=== PATIENT | male | born 1970 | race Caucasian/White ===

== ENCOUNTER 2017-06-11 06:00 | Day surgery (SDC) | payer BC | END 2017-06-11 10:45 | disposition home or self-care (01) | LOC: FECT 06:00 | PROC: GZB4ZZZ Other Electroconvulsive Therapy (ICD-10-PCS; principal; 2017-06-11) | DX: F33.2 Major depressive disorder, recurrent severe without psychotic features (principal) | CPT/HCPCS: 36415; 80053; 85025; 90870; 93005; 94760 ==

== ENCOUNTER 2017-06-14 05:51 | Day surgery (SDC) | payer BC | END 2017-06-14 08:56 | disposition home or self-care (01) | LOC: FECT 05:51 | PROC: GZB4ZZZ Other Electroconvulsive Therapy (ICD-10-PCS; principal; 2017-06-14) | DX: F33.2 Major depressive disorder, recurrent severe without psychotic features (principal) | CPT/HCPCS: 90870; 94760 ==

== ENCOUNTER → 2017-06-16 | Day surgery (SDC) | payer BC ==
[2017-06-11 16:05] VITALS: BMI 26.4
[~2017-06-16] MED LIST: KETAMINE HCL 500 MG/10 ML VIAL ONE
[2017-06-16 08:19] VITALS: TEMP 97.6
[2017-06-16 08:59] VITALS: BP 124/80; PULSE 66
== END | disposition home or self-care (01) ==
LOC: FECT 05:44
PROVIDERS: ATTEND Psychiatry & Neurology Psychiatry
PROC: GZB4ZZZ Other Electroconvulsive Therapy (ICD-10-PCS; principal; 2017-06-16 08:15)
DX: F33.2 Major depressive disorder, recurrent severe without psychotic features (principal)
CPT/HCPCS: 90870; 94760

== ENCOUNTER 2017-06-18 05:40 | Day surgery (SDC) | payer BC | END 2017-06-18 08:45 | disposition home or self-care (01) | LOC: FECT 05:40 | PROC: GZB4ZZZ Other Electroconvulsive Therapy (ICD-10-PCS; principal; 2017-06-18) | DX: F33.2 Major depressive disorder, recurrent severe without psychotic features (principal) | CPT/HCPCS: 90870; 94760 ==

== ENCOUNTER 2017-06-21 05:35 | Day surgery (SDC) | payer BC ==
[2017-06-14 12:08] VITALS: BMI 26.4
[2017-06-21 06:01] VITALS: TEMP 97.8
[2017-06-21 08:41] VITALS: BP 112/70; PULSE 61
== END 2017-06-21 08:35 | disposition home or self-care (01) ==
LOC: FECT 05:35
PROVIDERS: ATTEND Psychiatry & Neurology Psychiatry
PROC: GZB4ZZZ Other Electroconvulsive Therapy (ICD-10-PCS; principal; 2017-06-21 08:00)
DX: F33.2 Major depressive disorder, recurrent severe without psychotic features (principal)
CPT/HCPCS: 90870; 94760

== ENCOUNTER 2017-06-23 05:40 | Day surgery (SDC) | payer BC ==
[2017-06-23 06:15] VITALS: BMI 26.2
[2017-06-23 08:27] VITALS: BP 116/79; PULSE 72; TEMP 98.2
== END 2017-06-23 08:56 | disposition home or self-care (01) ==
LOC: FECT 05:40
PROVIDERS: ATTEND Psychiatry & Neurology Psychiatry
PROC: GZB4ZZZ Other Electroconvulsive Therapy (ICD-10-PCS; principal; 2017-06-23 08:00)
DX: F33.2 Major depressive disorder, recurrent severe without psychotic features (principal)
CPT/HCPCS: 90870; 94760

== ENCOUNTER 2017-06-25 05:35 | Day surgery (SDC) | payer BC ==
[2017-06-25 06:09] VITALS: BMI 26.4
[2017-06-25 07:52] VITALS: TEMP 97.5
[2017-06-25 08:28] VITALS: BP 108/68; PULSE 60
== END 2017-06-25 08:20 | disposition home or self-care (01) ==
LOC: FECT 05:35
PROVIDERS: ATTEND Psychiatry & Neurology Psychiatry
PROC: GZB4ZZZ Other Electroconvulsive Therapy (ICD-10-PCS; principal; 2017-06-25 07:15)
DX: F33.2 Major depressive disorder, recurrent severe without psychotic features (principal)
CPT/HCPCS: 90870; 94760

== ENCOUNTER 2017-06-28 05:41 | Day surgery (SDC) | payer BC ==
[2017-06-21 13:17] VITALS: BMI 26.4
[2017-06-28 08:45] VITALS: TEMP 98
[2017-06-28 08:57] VITALS: BP 116/79; PULSE 64
== END 2017-06-28 09:00 | disposition home or self-care (01) ==
LOC: FECT 05:41
PROVIDERS: ATTEND Psychiatry & Neurology Psychiatry
PROC: GZB4ZZZ Other Electroconvulsive Therapy (ICD-10-PCS; principal; 2017-06-28 07:15)
DX: F33.2 Major depressive disorder, recurrent severe without psychotic features (principal)
CPT/HCPCS: 90870; 94760

== ENCOUNTER 2017-06-30 05:41 | Day surgery (SDC) | payer BC ==
[2017-06-23 10:13] VITALS: BMI 26.4
[2017-06-30 08:36] VITALS: TEMP 97.6
[2017-06-30 08:56] VITALS: BP 119/82; PULSE 66
== END 2017-06-30 08:58 | disposition home or self-care (01) ==
LOC: FECT 05:41
PROVIDERS: ATTEND Psychiatry & Neurology Psychiatry
PROC: GZB4ZZZ Other Electroconvulsive Therapy (ICD-10-PCS; principal; 2017-06-30 07:15)
DX: F33.2 Major depressive disorder, recurrent severe without psychotic features (principal)
CPT/HCPCS: 90870; 94760

== ENCOUNTER 2017-07-02 06:03 | Day surgery (SDC) | payer BC ==
[2017-06-23 10:16] VITALS: BMI 26.4
[2017-07-02 08:50] VITALS: TEMP 97.9
[2017-07-02 09:05] VITALS: BP 117/78; PULSE 71
== END 2017-07-02 09:17 | disposition home or self-care (01) ==
LOC: FECT 06:03
PROVIDERS: ATTEND Psychiatry & Neurology Psychiatry
PROC: GZB4ZZZ Other Electroconvulsive Therapy (ICD-10-PCS; principal; 2017-07-02 07:00)
DX: F33.2 Major depressive disorder, recurrent severe without psychotic features (principal)
CPT/HCPCS: 90870; 94760

== ENCOUNTER 2017-07-05 05:35 | Day surgery (SDC) | payer BC ==
[2017-06-23 10:28] VITALS: BMI 26.4
[2017-07-05] MEDS ORDERED: ONDANSETRON 4 MG/2 ML VIAL IVPUSH PRN (07:39)
[2017-07-05] MEDS ORDERED: ACETAMINOPHEN 325 MG TABLET (FP) PO PRN (07:39)
[2017-07-05 08:27] VITALS: PULSE 66; TEMP 97.6
[2017-07-05 08:54] VITALS: BP 116/76
== END 2017-07-05 08:56 | disposition home or self-care (01) ==
LOC: FECT 05:35
PROVIDERS: ATTEND Psychiatry & Neurology Psychiatry
PROC: GZB4ZZZ Other Electroconvulsive Therapy (ICD-10-PCS; principal; 2017-07-05 07:00)
DX: F33.2 Major depressive disorder, recurrent severe without psychotic features (principal)
CPT/HCPCS: 90870; 94760

== ENCOUNTER 2017-07-07 05:33 | Day surgery (SDC) | payer BC ==
[2017-06-29 12:05] VITALS: BMI 26.4
[2017-07-07] MEDS ORDERED: KETAMINE HCL 500 MG/10 ML VIAL ONE (07:51)
[2017-07-07] MEDS ORDERED: ACETAMINOPHEN 325 MG TABLET (FP) PO PRN (08:22)
[2017-07-07] MEDS ORDERED: ONDANSETRON 4 MG/2 ML VIAL IVPUSH PRN (08:22)
[2017-07-07 09:06] VITALS: TEMP 97.9
[2017-07-07 09:32] VITALS: BP 135/84; PULSE 69
== END 2017-07-07 09:35 | disposition home or self-care (01) ==
LOC: FECT 05:33
PROVIDERS: ATTEND Psychiatry & Neurology Psychiatry
PROC: GZB4ZZZ Other Electroconvulsive Therapy (ICD-10-PCS; principal; 2017-07-07 07:00)
DX: F33.2 Major depressive disorder, recurrent severe without psychotic features (principal)
CPT/HCPCS: 90870; 94760

== ENCOUNTER 2017-07-09 05:51 | Day surgery (SDC) | payer BC ==
[2017-07-09 07:05] VITALS: BMI 26.4
[2017-07-09 09:11] VITALS: PULSE 69; TEMP 97.6
[2017-07-09 09:12] VITALS: BP 110/70
== END 2017-07-09 09:21 | disposition home or self-care (01) ==
LOC: FECT 05:51
PROVIDERS: ATTEND Psychiatry & Neurology Psychiatry
PROC: GZB4ZZZ Other Electroconvulsive Therapy (ICD-10-PCS; principal; 2017-07-09 08:45)
DX: F33.2 Major depressive disorder, recurrent severe without psychotic features (principal)
CPT/HCPCS: 90870; 94760

== ENCOUNTER 2017-07-12 05:49 | Day surgery (SDC) | payer BC ==
[2017-07-07 17:09] VITALS: BMI 26.4
[2017-07-12 07:01] VITALS: TEMP 97.8
--- NOTE | 2017-07-12 07:14 | HP ---
Admitting History and Physical - Admission History of Present Illness: Patient is a 46 y/o male with a past medical history of depression. Patient presents for ect, his last ect was 07/09/17. Patient reports no significant improvement in depressive symptoms since starting ect. He denies any suicidal or homicidal ideation visual or auditory hallucinations. Patient does report compliance with prescribed medications, he denies any changes to medications. Patient denies any recent hospitalizations or illnesses. History Source: Patient Limitations to Obtaining History: No Limitations - Smoking History Smoking history: Never smoked Have you smoked in the past 12 months: No - Alcohol/Substance Use Hx Alcohol Use: No History of Substance Use: reports: None - Social History Usual Living Arrangement: Yes: With Spouse ADL: Independent History of Recent Travel: No Home Medications - Allergies Allergies/Adverse Reactions: Allergies Allergy/AdvReac Type Severity Reaction Status Date / Time No Known Allergies Allergy Verified 07/08/17 17:16 - Home Medications Home Medications: Ambulatory Orders Alpha Lipoic Acid 600 mg PO HS 06/10/17 Cholecalciferol (Vitamin D3) [Vitamin D3] 2,000 unit PO HS 06/10/17 Citalopram Hydrobromide [Celexa -] 40 mg PO HS 06/10/17 Cyanocobalamin [Vitamin B12 -] 1,000 mcg SL HS 06/10/17 Magnesium Glycinate [Mag Glycinate] 400 mg PO HS 06/10/17 Olanzapine 10 mg PO HS 06/10/17 Potassium 99 mg PO HS 06/10/17 Ubidecarenone [Coq10] 100 mg PO HS 06/10/17 clonazePAM [Klonopin -] 0.5 mg PO TID PRN 06/10/17 Folic Acid 1 mg PO HS 07/02/17 Family Disease History - Family Disease History Family Disease History: Diabetes: Mother, Other: Father (stomach CA ) Review of Systems - Review of Systems Constitutional: reports: No Symptoms Eyes: reports: No Symptoms HENT: reports: No Symptoms Neck: reports: No Symptoms Cardiovascular: reports: No Symptoms Respiratory: reports: No Symptoms Gastrointestinal: reports: No Symptoms Genitourinary: reports: No Symptoms Musculoskeletal: reports: No Symptoms Integumentary: reports: No Symptoms Neurological: reports: No Symptoms Endocrine: reports: No Symptoms Hematology/Lymphatic: reports: No Symptoms Psychiatric: reports: No Symptoms Physical Examination Vital Signs: Vital Signs Temperature 97.8 F 07/12/17 06:57 Pulse Rate 66 07/12/17 06:57 Respiratory Rate 18 07/12/17 06:57 Blood Pressure 109/74 07/12/17 06:57 O2 Sat by Pulse Oximetry (%) 96 07/12/17 06:57 Constitutional: Yes: Well Nourished, No Distress, Calm Eyes: Yes: WNL, Conjunctiva Clear, EOM Intact HENT: Yes: WNL, Atraumatic, Normocephalic Neck: Yes: WNL, Supple, Trachea Midline Cardiovascular: Yes: WNL, Regular Rate and Rhythm, S1, S2 Respiratory: Yes: WNL, Regular, CTA Bilaterally Gastrointestinal: Yes: WNL, Normal Bowel Sounds, Soft ...Rectal Exam: Yes: Deferred Renal/: Yes: WNL Breast(s): Yes: WNL Musculoskeletal: Yes: WNL Extremities: Yes: WNL Edema: No Peripheral Pulses WNL: Yes Peripheral Pulses: Left Radial: 4+, Right Radial: 4+, Left Doralis Pedis: 3+, Right Dorsalis Pedis: 3+, Left Femoral: 3+, Right Femoral: 3+ Integumentary: Yes: WNL Neurological: Yes: WNL, Alert, Oriented ...Motor Strength: WNL Psychiatric: Yes: WNL, Alert, Oriented Labs: reviewed 06/11/17 Imaging - Results EKG: Image Reviewed, Other (nsr, incomplete right bundle branch block, right axis deviation) Assessment/Plan patient is a 46 y/o male, patient presents for ect, labs and ekg received patient is medically optimized for procedure, informed consent, risks/benefits to be obtained by Dr Landa.
[2017-07-12 09:00] VITALS: BP 116/76; PULSE 72
== END 2017-07-12 09:02 | disposition home or self-care (01) ==
LOC: FECT 05:49
PROVIDERS: ATTEND Psychiatry & Neurology Psychiatry
PROC: GZB4ZZZ Other Electroconvulsive Therapy (ICD-10-PCS; principal; 2017-07-12 07:45)
DX: F33.2 Major depressive disorder, recurrent severe without psychotic features (principal)
CPT/HCPCS: 90870; 94760

== ENCOUNTER 2017-07-14 05:40 | Day surgery (SDC) | payer BC ==
[2017-07-08 17:17] VITALS: BMI 26.4
[2017-07-14 07:59] VITALS: TEMP 97.9
[2017-07-14 08:23] VITALS: BP 112/69; PULSE 79
== END 2017-07-14 08:31 | disposition home or self-care (01) ==
LOC: FECT 05:40
PROVIDERS: ATTEND Psychiatry & Neurology Psychiatry
PROC: GZB4ZZZ Other Electroconvulsive Therapy (ICD-10-PCS; principal; 2017-07-14 08:15)
DX: F33.2 Major depressive disorder, recurrent severe without psychotic features (principal)
CPT/HCPCS: 90870; 94760

== ENCOUNTER 2017-07-16 05:51 | Day surgery (SDC) | payer BC ==
[2017-07-09 10:47] VITALS: BMI 26.4
[2017-07-16 06:48] VITALS: TEMP 97.4
[2017-07-16 09:09] VITALS: BP 120/84; PULSE 77
== END 2017-07-16 09:10 | disposition home or self-care (01) ==
LOC: FECT 05:51
PROVIDERS: ATTEND Psychiatry & Neurology Psychiatry
PROC: GZB4ZZZ Other Electroconvulsive Therapy (ICD-10-PCS; principal; 2017-07-16 08:15)
DX: F33.2 Major depressive disorder, recurrent severe without psychotic features (principal)
CPT/HCPCS: 90870; 94760

== ENCOUNTER 2017-07-21 05:42 | Day surgery (SDC) | payer BC ==
[2017-07-21 06:24] VITALS: BMI 26.2
[2017-07-21 08:04] VITALS: TEMP 97.6
[2017-07-21 09:34] VITALS: BP 128/82; PULSE 64
== END 2017-07-21 08:45 | disposition home or self-care (01) ==
LOC: FECT 05:42
PROVIDERS: ATTEND Psychiatry & Neurology Psychiatry
PROC: GZB4ZZZ Other Electroconvulsive Therapy (ICD-10-PCS; principal; 2017-07-21 07:45)
DX: F33.2 Major depressive disorder, recurrent severe without psychotic features (principal)
CPT/HCPCS: 90870; 94760

== ENCOUNTER 2017-07-23 05:40 | Day surgery (SDC) | payer BC ==
[2017-07-23 06:16] VITALS: BMI 26.4
[2017-07-23] MEDS ORDERED: ONDANSETRON 4 MG/2 ML VIAL IVPUSH PRN (07:59)
[2017-07-23] MEDS ORDERED: oxyCODONE HCL 5 MG TABLET PO PRN (07:59)
[2017-07-23 08:23] VITALS: TEMP 97.6
[2017-07-23 08:47] VITALS: BP 126/87; PULSE 67
== END 2017-07-23 08:50 | disposition home or self-care (01) ==
LOC: FECT 05:40
PROVIDERS: ATTEND Psychiatry & Neurology Psychiatry
PROC: GZB4ZZZ Other Electroconvulsive Therapy (ICD-10-PCS; principal; 2017-07-23 08:00)
DX: F33.2 Major depressive disorder, recurrent severe without psychotic features (principal)
CPT/HCPCS: 90870; 94760

== ENCOUNTER 2017-07-26 05:39 | Day surgery (SDC) | payer BC ==
[2017-07-21 17:06] VITALS: BMI 26.4
[2017-07-26] MEDS ORDERED: KETAMINE HCL 500 MG/10 ML VIAL ONE (07:01)
[2017-07-26 07:57] VITALS: TEMP 98.2
[2017-07-26 09:28] VITALS: BP 122/86; PULSE 67
== END 2017-07-26 09:00 | disposition home or self-care (01) ==
LOC: FECT 05:39
PROVIDERS: ATTEND Psychiatry & Neurology Psychiatry
PROC: GZB4ZZZ Other Electroconvulsive Therapy (ICD-10-PCS; principal; 2017-07-26 07:45)
DX: F33.2 Major depressive disorder, recurrent severe without psychotic features (principal)
CPT/HCPCS: 90870; 94760

== ENCOUNTER 2017-07-28 05:42 | Day surgery (SDC) | payer BC ==
[2017-07-28 06:45] VITALS: TEMP 97.4; BMI 26.4
[2017-07-28 09:14] VITALS: PULSE 68
[2017-07-28 09:43] VITALS: BP 116/72
== END 2017-07-28 09:35 | disposition home or self-care (01) ==
LOC: FECT 05:42
PROVIDERS: ATTEND Psychiatry & Neurology Psychiatry
PROC: GZB4ZZZ Other Electroconvulsive Therapy (ICD-10-PCS; principal; 2017-07-28 07:45)
DX: F33.2 Major depressive disorder, recurrent severe without psychotic features (principal)
CPT/HCPCS: 90870; 94760

== ENCOUNTER 2017-07-30 05:36 | Day surgery (SDC) | payer BC ==
[2017-07-30 06:34] VITALS: BMI 26.4
[2017-07-30 08:18] VITALS: TEMP 98.4
[2017-07-30 08:47] VITALS: BP 125/80; PULSE 69
== END 2017-07-30 08:40 | disposition home or self-care (01) ==
LOC: FECT 05:36
PROVIDERS: ATTEND Psychiatry & Neurology Psychiatry
PROC: GZB4ZZZ Other Electroconvulsive Therapy (ICD-10-PCS; principal; 2017-07-30 07:15)
DX: F33.2 Major depressive disorder, recurrent severe without psychotic features (principal)
CPT/HCPCS: 90870; 94760

== ENCOUNTER 2017-08-13 05:45 | Day surgery (SDC) | payer BC ==
[2017-08-02 17:17] VITALS: BMI 26.4
[2017-08-13] MEDS ORDERED: KETAMINE HCL 500 MG/10 ML VIAL ONE (07:12)
--- NOTE | 2017-08-13 08:57 | HP ---
Admitting History and Physical - Admission History of Present Illness: Patient is a 47 y/o male with a past medical history of depression. Patient presents for ECT, his last ect was August 02 2017. Patient reports feeling well. He denies any recent illnesses or hospitalization. Patient does report ongoing feelings of depression he denies any suicidal or homicidal ideation patient denies any visual or auditory hallucination. Patient reports his Celexa is being weaned down and he was started on Prestiq. Patient does report compliance with prescribed medications. History Source: Patient Limitations to Obtaining History: No Limitations - Smoking History Smoking history: Never smoked Have you smoked in the past 12 months: No - Alcohol/Substance Use Hx Alcohol Use: No History of Substance Use: reports: None - Social History Usual Living Arrangement: Yes: With Spouse ADL: Independent History of Recent Travel: No Home Medications - Allergies Allergies/Adverse Reactions: Allergies Allergy/AdvReac Type Severity Reaction Status Date / Time No Known Allergies Allergy Verified 08/02/17 17:03 - Home Medications Home Medications: Ambulatory Orders Alpha Lipoic Acid 600 mg PO HS 06/10/17 Cholecalciferol (Vitamin D3) [Vitamin D3] 2,000 unit PO HS 06/10/17 Citalopram Hydrobromide [Celexa -] 20 mg PO DAILY 06/10/17 Cyanocobalamin [Vitamin B12 -] 1,000 mcg SL HS 06/10/17 Magnesium Glycinate [Mag Glycinate] 400 mg PO HS 06/10/17 Olanzapine 5 mg PO DAILY 06/10/17 Potassium 99 mg PO HS 06/10/17 Ubidecarenone [Coq10] 100 mg PO HS 06/10/17 clonazePAM [Klonopin -] 0.5 mg PO TID PRN 06/10/17 Folic Acid 1 mg PO HS 07/02/17 Mirtazapine 30 mg PO HS 07/16/17 [place]-3 Fatty Acids/Fish Oil [Fish Oil 1,000 mg Capsule] 1 each PO HS 07/16/17 Desvenlafaxine Succinate [Desvenlafaxine Succinate ER] 50 mg PO DAILY MDD TO START 08/13/17 08/13/17 Family Disease History - Family Disease History Family Disease History: Diabetes: Mother, Other: Father (stomach CA ) Review of Systems - Review of Systems Constitutional: reports: No Symptoms Eyes: reports: No Symptoms HENT: reports: No Symptoms Neck: reports: No Symptoms Cardiovascular: reports: No Symptoms Respiratory: reports: No Symptoms Gastrointestinal: reports: No Symptoms Genitourinary: reports: No Symptoms Musculoskeletal: reports: No Symptoms Integumentary: reports: No Symptoms Neurological: reports: No Symptoms Endocrine: reports: No Symptoms Hematology/Lymphatic: reports: No Symptoms Psychiatric: reports: Depression Physical Examination Vital Signs: Vital Signs Temperature 97.9 F 08/13/17 08:18 Pulse Rate 68 08/13/17 08:18 Respiratory Rate 11 L 08/13/17 08:18 Blood Pressure 130/84 08/13/17 08:18 O2 Sat by Pulse Oximetry (%) 98 08/13/17 08:05 Constitutional: Yes: Well Nourished, No Distress, Calm Eyes: Yes: WNL, Conjunctiva Clear, EOM Intact HENT: Yes: WNL, Atraumatic, Normocephalic Neck: Yes: WNL, Supple, Trachea Midline Cardiovascular: Yes: WNL, Regular Rate and Rhythm, S1, S2 Respiratory: Yes: WNL, Regular, CTA Bilaterally Gastrointestinal: Yes: WNL, Normal Bowel Sounds, Soft ...Rectal Exam: Yes: WNL Renal/: Yes: WNL Breast(s): Yes: WNL Musculoskeletal: Yes: WNL Extremities: Yes: WNL Edema: No Peripheral Pulses WNL: Yes Peripheral Pulses: Left Radial: 4+, Right Radial: 4+, Left Doralis Pedis: 3+, Right Dorsalis Pedis: 3+, Left Femoral: 3+, Right Femoral: 3+ Integumentary: Yes: WNL Neurological: Yes: WNL, Alert, Oriented ...Motor Strength: WNL Psychiatric: Yes: WNL, Alert, Oriented Labs: reviewed 06/09 Imaging - Results EKG: Other (normal sinus rhythm left axis deviation) Assessment/Plan Patient is a 47-year-old male that presents for ECT, labs and EKG reviewed Patient is medically optimized for procedure Informed consent risks benefits to be obtained by Dr Landa
[2017-08-13 08:58] VITALS: TEMP 97.7
[2017-08-13 09:04] VITALS: BP 122/82; PULSE 66
== END 2017-08-13 09:18 | disposition home or self-care (01) ==
LOC: FECT 05:45
PROVIDERS: ATTEND Psychiatry & Neurology Psychiatry
PROC: GZB4ZZZ Other Electroconvulsive Therapy (ICD-10-PCS; principal; 2017-08-13 07:30)
DX: F33.2 Major depressive disorder, recurrent severe without psychotic features (principal)
CPT/HCPCS: 90870; 94760

== ENCOUNTER 2017-08-16 05:40 | Day surgery (SDC) | payer BC ==
[2017-08-16 06:17] VITALS: BMI 26.4
[2017-08-16] MEDS ORDERED: KETAMINE HCL 500 MG/10 ML VIAL ONE (07:05)
[2017-08-16 08:14] VITALS: TEMP 97.5
[2017-08-16 09:03] VITALS: BP 122/82; PULSE 70
== END 2017-08-16 09:06 | disposition home or self-care (01) ==
LOC: FECT 05:40
PROVIDERS: ATTEND Psychiatry & Neurology Psychiatry
PROC: GZB4ZZZ Other Electroconvulsive Therapy (ICD-10-PCS; principal; 2017-08-16 08:00)
DX: F33.2 Major depressive disorder, recurrent severe without psychotic features (principal)
CPT/HCPCS: 90870; 94760

== ENCOUNTER 2017-08-18 05:39 | Day surgery (SDC) | payer BC ==
[2017-08-18 06:30] VITALS: TEMP 97.5; BMI 26.4
[2017-08-18 08:41] VITALS: BP 129/76; PULSE 62
== END 2017-08-18 08:46 | disposition home or self-care (01) ==
LOC: FECT 05:39
PROVIDERS: ATTEND Psychiatry & Neurology Psychiatry
PROC: GZB4ZZZ Other Electroconvulsive Therapy (ICD-10-PCS; principal; 2017-08-18 07:45)
DX: F33.2 Major depressive disorder, recurrent severe without psychotic features (principal)
CPT/HCPCS: 90870; 94760

== ENCOUNTER 2017-08-27 05:44 | Day surgery (SDC) | payer BC ==
[2017-08-27 06:16] VITALS: BMI 26.4
[2017-08-27 08:34] VITALS: PULSE 74; TEMP 97.5
[2017-08-27 08:35] VITALS: BP 125/85
[2017-08-27] MEDS ORDERED: ONDANSETRON 4 MG/2 ML VIAL IVPUSH PRN (09:29)
== END 2017-08-27 08:27 | disposition home or self-care (01) ==
LOC: FECT 05:44
PROVIDERS: ATTEND Psychiatry & Neurology Psychiatry
PROC: GZB4ZZZ Other Electroconvulsive Therapy (ICD-10-PCS; principal; 2017-08-27 08:15)
DX: F33.2 Major depressive disorder, recurrent severe without psychotic features (principal)

== ENCOUNTER 2017-09-03 05:43 | Day surgery (SDC) | payer BC ==
[2017-08-30 17:39] VITALS: BMI 26.4
[2017-09-03 08:30] VITALS: TEMP 98.2
[2017-09-08 12:19] VITALS: BP 120/78; PULSE 74
== END 2017-09-03 09:00 | disposition home or self-care (01) ==
LOC: FECT 05:43
PROVIDERS: ATTEND Psychiatry & Neurology Psychiatry
PROC: GZB4ZZZ Other Electroconvulsive Therapy (ICD-10-PCS; principal; 2017-09-03 08:15)
DX: F33.2 Major depressive disorder, recurrent severe without psychotic features (principal)

== ENCOUNTER 2017-09-13 05:53 | Day surgery (SDC) | payer BC ==
[2017-09-09 18:21] VITALS: BMI 26.4
--- NOTE | 2017-09-13 07:10 | HP ---
Admitting History and Physical - Admission History of Present Illness: Patient is a 47 y/o male with a past medical history of anxiety and depression. Patient presents for ect, he has been undergoing ect since 06/09, his last ect was 09/03/17. Patient denies any recent illnesses or hospitalizations. He reports ongoing feelings of anxiety. Patient does report his depressive symptoms have improved since starting ect. He report compliance with prescribed medications. Patient denies any suicidal or homicidal ideation, visual or auditory hallucinations. History Source: Patient Limitations to Obtaining History: No Limitations - Smoking History Smoking history: Never smoked Have you smoked in the past 12 months: No - Alcohol/Substance Use Hx Alcohol Use: No History of Substance Use: reports: None - Social History Usual Living Arrangement: Yes: With Spouse ADL: Independent Occupation: teacher History of Recent Travel: No Home Medications - Allergies Allergies/Adverse Reactions: Allergies Allergy/AdvReac Type Severity Reaction Status Date / Time No Known Allergies Allergy Verified 08/27/17 06:16 - Home Medications Home Medications: Ambulatory Orders Alpha Lipoic Acid 600 mg PO HS 06/10/17 Cholecalciferol (Vitamin D3) [Vitamin D3] 2,000 unit PO HS 06/10/17 Cyanocobalamin [Vitamin B12 -] 1,000 mcg SL HS 06/10/17 Magnesium Glycinate [Mag Glycinate] 400 mg PO HS 06/10/17 Olanzapine 5 mg PO DAILY 06/10/17 Potassium 99 mg PO HS 06/10/17 Ubidecarenone [Coq10] 100 mg PO HS 06/10/17 clonazePAM [Klonopin -] 0.5 mg PO TID PRN 06/10/17 Folic Acid 1 mg PO HS 07/02/17 Mirtazapine 30 mg PO HS 07/16/17 [place]-3 Fatty Acids/Fish Oil [Fish Oil 1,000 mg Capsule] 1 each PO HS 07/16/17 Desvenlafaxine Succinate [Desvenlafaxine Succinate ER] 100 mg PO DAILY MDD TO START 08/13/17 08/13/17 Family Disease History - Family Disease History Family Disease History: Diabetes: Mother, Other: Father (stomach CA ) Review of Systems - Review of Systems Constitutional: reports: No Symptoms Eyes: reports: No Symptoms HENT: reports: No Symptoms Neck: reports: No Symptoms Cardiovascular: reports: No Symptoms Respiratory: reports: No Symptoms Gastrointestinal: reports: No Symptoms Genitourinary: reports: No Symptoms Musculoskeletal: reports: No Symptoms Integumentary: reports: No Symptoms Neurological: reports: No Symptoms Endocrine: reports: No Symptoms Hematology/Lymphatic: reports: No Symptoms Psychiatric: reports: Anxiety Physical Examination Vital Signs: Vital Signs Temperature 98.1 F 09/13/17 06:24 Pulse Rate 66 09/13/17 06:24 Respiratory Rate 18 09/13/17 06:24 Blood Pressure 115/72 09/13/17 06:24 O2 Sat by Pulse Oximetry (%) 100 09/13/17 06:24 Constitutional: Yes: Well Nourished, No Distress, Calm Eyes: Yes: WNL, Conjunctiva Clear, EOM Intact HENT: Yes: WNL, Atraumatic, Normocephalic Neck: Yes: WNL, Supple, Trachea Midline Cardiovascular: Yes: WNL, Regular Rate and Rhythm, S1, S2 Respiratory: Yes: WNL, Regular, CTA Bilaterally Gastrointestinal: Yes: WNL, Normal Bowel Sounds, Soft ...Rectal Exam: Yes: Deferred Renal/: Yes: WNL Breast(s): Yes: WNL Musculoskeletal: Yes: WNL Extremities: Yes: WNL Edema: No Peripheral Pulses WNL: Yes Peripheral Pulses: Left Radial: 4+, Right Radial: 4+, Left Doralis Pedis: 3+, Right Dorsalis Pedis: 3+, Left Femoral: 3+, Right Femoral: 3+ Integumentary: Yes: WNL Neurological: Yes: WNL, Alert, Oriented ...Motor Strength: WNL Psychiatric: Yes: WNL, Alert, Oriented Labs: reviewed 06/09 Imaging - Results EKG: Image Reviewed, Other (nsr left axis deviation) Assessment/Plan patient is a 47 y/o male that presents for ect, labs and ekg reviewed patient is medically optimized for procedure informed consent, risks/benefits to be obtained by Dr Landa
[2017-09-13] MEDS ORDERED: ONDANSETRON 4 MG/2 ML VIAL IVPUSH PRN (07:33)
[2017-09-13 09:00] VITALS: BP 107/71; PULSE 61; TEMP 97.5
== END 2017-09-13 08:15 | disposition home or self-care (01) ==
LOC: FECT 05:53
PROVIDERS: ATTEND Psychiatry & Neurology Psychiatry
PROC: GZB4ZZZ Other Electroconvulsive Therapy (ICD-10-PCS; principal; 2017-09-13 08:30)
DX: F33.2 Major depressive disorder, recurrent severe without psychotic features (principal)
CPT/HCPCS: 90870; 94760

== ENCOUNTER 2017-09-16 05:42 | Day surgery (SDC) | payer BC ==
[2017-09-16 06:13] VITALS: BMI 26.4
[2017-09-16] MEDS ORDERED: ONDANSETRON 4 MG/2 ML VIAL IVPUSH PRN (07:19)
[2017-09-16 07:55] VITALS: TEMP 97.5
[2017-09-16 08:54] VITALS: BP 110/63; PULSE 64
== END 2017-09-16 08:10 | disposition home or self-care (01) ==
LOC: FECT 05:42
PROVIDERS: ATTEND Psychiatry & Neurology Psychiatry
PROC: GZB4ZZZ Other Electroconvulsive Therapy (ICD-10-PCS; principal; 2017-09-16 09:00)
DX: F33.2 Major depressive disorder, recurrent severe without psychotic features (principal)
CPT/HCPCS: 90870; 94760

== ENCOUNTER 2017-09-20 05:31 | Day surgery (SDC) | payer BC ==
[2017-09-16 13:00] VITALS: BMI 26.4
[2017-09-20] MEDS ORDERED: KETAMINE HCL 500 MG/10 ML VIAL ONE (07:30)
[2017-09-20 08:29] VITALS: BP 127/84; TEMP 97.5
[2017-09-20 08:52] VITALS: PULSE 66
== END 2017-09-20 08:50 | disposition home or self-care (01) ==
LOC: FECT 05:31
PROVIDERS: ATTEND Psychiatry & Neurology Psychiatry
PROC: GZB4ZZZ Other Electroconvulsive Therapy (ICD-10-PCS; principal; 2017-09-20 08:15)
DX: F33.2 Major depressive disorder, recurrent severe without psychotic features (principal)
CPT/HCPCS: 90870; 94760

== ENCOUNTER 2017-09-27 05:39 | Day surgery (SDC) | payer BC ==
[2017-09-27 06:25] VITALS: BMI 26.4
[2017-09-27] MEDS ORDERED: KETAMINE HCL 500 MG/10 ML VIAL ONE (06:54)
[2017-09-27 08:01] VITALS: BP 125/80; TEMP 97.6
[2017-09-27 08:25] VITALS: PULSE 77
== END 2017-09-27 08:30 | disposition home or self-care (01) ==
LOC: FECT 05:39
PROVIDERS: ATTEND Psychiatry & Neurology Psychiatry
PROC: GZB4ZZZ Other Electroconvulsive Therapy (ICD-10-PCS; principal; 2017-09-27 07:45)
DX: F33.2 Major depressive disorder, recurrent severe without psychotic features (principal)
CPT/HCPCS: 90870; 94760

== ENCOUNTER 2017-09-30 05:40 | Day surgery (SDC) | payer BC ==
[2017-09-27 11:49] VITALS: BMI 26.4
[2017-09-30 08:57] VITALS: TEMP 97.5
[2017-09-30 08:59] VITALS: BP 133/90; PULSE 76
== END 2017-09-30 08:27 | disposition home or self-care (01) ==
LOC: FECT 05:40
PROVIDERS: ATTEND Psychiatry & Neurology Psychiatry
PROC: GZB4ZZZ Other Electroconvulsive Therapy (ICD-10-PCS; principal; 2017-09-30 07:30)
DX: F33.2 Major depressive disorder, recurrent severe without psychotic features (principal)
CPT/HCPCS: 90870; 94760